=== PATIENT | female | born 1940 | race African-American/Black ===

== ENCOUNTER 2017-06-17 14:58 | Inpatient (IN) | payer MEDICARE, MEDICAID ==
[~2017-06-17] VITALS: Ht 162.6 cm; Wt 83.9 kg
[~2017-06-17 14:58] MED LIST: AMOXICILLIN500 MG ORAL; METFORMIN HCL500 M1 ORAL
[2017-06-17] MEDS ORDERED: SIMVASTATIN40 MG ORAL (15:08)
[2017-06-17] MEDS ORDERED: CLONIDINE HCL0.1 MG PO (15:08)
--- NOTE | 2017-06-17 15:09 | Emergency Room Report ---
History of Present Illness General Chief Complaint: Lower Extremity Injury Source: EMS Present Illness HPI 76 yo female patient presents to ER BIB ambulance complaining of ankle pain. Patient reports accident occurred 45 minutes ago. Patient reports [facility] and twisted ankle "back". Reports unable to ambulate. Reports swelling of right ankle. Reports prior to accident able to ambulate independently without cane or crutches. Reports given Morphine in ambulance, reports improvement of pain symptoms. Denies hitting head, dizziness, LOC. Denies fever, chest pain, SOB. Allergies: Coded Allergies: ASPIRIN (Verified Allergy, Unknown, Shortness of Breath, 09/15/14) Uncoded Allergies: APIRIN (Allergy, Unknown, 06/17/17) Patient History Past Medical History: see triage record Reviewed Nursing Documentation: PMH: Agreed, PSxH: Agreed Nursing Documentation-PMH Past Medical History: No History, Except For Hx Hypertension: Yes Hx Asthma: Yes Hx Diabetes: Yes Hx Cerebrovascular Accident: No Review of Systems All Other Systems: negative except mentioned in HPI Physical Exam Vital Signs Date Time Temp Pulse Resp B/P (MAP) Pulse Ox O2 Delivery O2 Flow Rate FiO2 06/17/17 14:50 98.5 51 16 168/65 98 Room Air 98.4 Sp02 EP Interpretation: reviewed, normal General Appearance: well appearing, no apparent distress, alert, GCS 15, non- toxic Head: normocephalic, atraumatic Eyes: bilateral eye normal inspection, bilateral eye PERRL ENT: hearing grossly normal, normal pharynx, no angioedema, normal voice, uvula midline, moist mucus membranes Neck: full range of motion Respiratory: lungs clear, normal breath sounds, no rhonchi, no respiratory distress, no accessory muscle use, no wheezing, speaking full sentences Cardiovascular #1: regular rate, rhythm, no edema Musculoskeletal: back normal, digits/nails normal, no calf tenderness, decreased range of motion, swelling, other - NVI, negative Syndesmotic squeeze test, patient able to wiggle toes, tender Neurologic: alert, oriented x3, responsive, motor strength/tone normal, sensory intact Psychiatric: mood/affect normal Skin: no rash Medical Decision Making PA Attestation Dr. Miles is my supervising Physician whom patient management has been discussed with. Diagnostic Impression: Primary Impression: Trimalleolar fracture ER Course Pt. presents to the ED c/o ankle pain. Ddx considered but are not limited to fracture, sprain, strain, contusion, dislocation. Vital signs: are WNL, pt. is afebrile Ordered X-ray and pain medication. ER COURSE An X-ray of the right ankle was ordered, results show trimalleolar fracture with subluxation, per the official reading. Consult with Dr. Miles. See Dr. Miles note. Attempted reduction in ER without sedation. Repeat x-ray taken post-reduction. Ankle placed in short leg and stirrup splint. Labs for admission ordered by Dr. Miles. Morphine ordered for patient for pain. Consult with Dr. Yañez. Patient will be admitted to Dr. Manriquez. Ordered labs for admission. Other X-Ray Diagnostic Results Other X-Ray Diagnostic Results #1: X-Ray ordered: right ankle # of Views/Limited Vs Complete: 3 View Indication: Pain EP Interpretation: Yes PA Xray: Interpretation reviewed, by supervising MD, and agrees with findings. Interpretation: other - trimallolar fracture and subluxation Impression: Other PA Scribe Text Paul Bowling PA-C Other X-Ray Diagnostic Results #2: X-Ray ordered: right ankle # of Views/Limited Vs Complete: 3 View Indication: Other - post-reduction EP Interpretation: Yes PA Xray: Interpretation reviewed, by supervising MD, and agrees with findings. Interpretation: other Impression: Other PA Scribe Text Paul Bowling PA-C Last Vital Signs Date Time Temp Pulse Resp B/P (MAP) Pulse Ox O2 Delivery O2 Flow Rate FiO2 06/17/17 14:50 98.5 51 16 168/65 98 Room Air 98.4 Disposition: ADMITTED INPATIENT Patient Instructions: Ankle Fracture, [id number] Ford Bowling Jun 17, 2017 15:09
[2017-06-17] MEDS ORDERED: OXYCODONE HCL20 M1 ORAL (15:11)
[2017-06-17] MEDS ORDERED: DIAZEPAM10 MG ORAL (15:11)
[2017-06-17] MEDS ORDERED: TENORMIN100 MG ORAL (15:11)
[2017-06-17] MEDS ORDERED: IRON18 M1 PO (15:17)
[2017-06-17] MEDS ORDERED: HYDRALAZIN20 MG/1 ML IJ (15:17)
[2017-06-17] MEDS ORDERED: OMEPRAZOLE20 M3 ORAL (15:17)
[2017-06-17] MEDS ORDERED: LISINOPRIL40 MG ORAL (15:17)
[2017-06-17] MEDS ORDERED: AMLODIPINE BESY10 MG ORAL (15:17)
[2017-06-17] MEDS ORDERED: NORCO 5-325 TA1 EACH ORAL (16:32)
[2017-06-17] MEDS ORDERED: TYLENOL EXTRA500 MG ORAL (16:32)
--- NOTE | 2017-06-17 16:40 | Diagnostic Imaging Report ---
Indication: Reason For Exam: PAIN Technique: 2 views of the right ankle Comparison: none Findings: There is a spiral fracture of the distal fibula. There is lateral and posterior subluxation of the tibiotalar joint. There is a fracture of the posterior malleolus. There are linear opacities between the talus and the medial malleolus which could represent small avulsion fracture fragments. Impression: Positive for complex trimalleolar ankle fracture/subluxation, as described
--- NOTE | 2017-06-17 17:17 | Emergency Room Report ---
History of Present Illness General Chief Complaint: Lower Extremity Injury Source: EMS Present Illness Allergies: Coded Allergies: ASPIRIN (Verified Allergy, Unknown, Shortness of Breath, 09/15/14) Uncoded Allergies: APIRIN (Allergy, Unknown, 06/17/17) Nursing Documentation-[facility] Past Medical History: No History, Except For Hx Hypertension: Yes Hx Asthma: Yes Hx Diabetes: Yes Hx Cerebrovascular Accident: No Physical Exam Vital Signs Date Time Temp Pulse Resp B/P (MAP) Pulse Ox O2 Delivery O2 Flow Rate FiO2 06/17/17 14:50 98.5 51 16 168/65 98 Room Air 98.4 Procedures Splinting Splinting : Consent: Verbal Hand-Made Type: plaster Splint: Posterior and stirrup Pre-Proc Neuro Vasc Exam: normal Post-Proc Neuro Vasc Exam: normal Patient Tolerated: Well Complications: None Joint Reduction Joint Reduction : Consent: Verbal Joint Reduction Site: other - Right ankle Procedural Sedation: No Reduction Attempts: One Pre-Procedure NV Exam: Yes Post-Procedure NV Exam: Yes Post Joint Reduction Film: joint reduced Patient Tolerated: Well Complications: None Progress Attempted reduction of subluxation Reduction done without sedation Mild improvement in subluxation Stirrup and posterior splint applied Medical Decision Making Diagnostic Impression: Primary Impression: Trimalleolar fracture Qualified Codes: S82.851A - Displaced trimalleolar fracture of right lower leg , initial encounter for closed fracture ER Course Patient with complex trimall fx see PA note for HPI, PE Was asked by PA to see patient and review Xray She has subluxation of the ankle Attempted closed reduction without sedation - see procedure note Pre-op labs in progress History of DM, HTN Consulted Dr Ellis - requested admission Endorsed to Dr Dhillon/surg bed Last Vital Signs Date Time Temp Pulse Resp B/P (MAP) Pulse Ox O2 Delivery O2 Flow Rate FiO2 06/17/17 14:50 98.5 51 16 168/65 98 Room Air 98.4 Status: improved Disposition: ADMITTED INPATIENT Scripts Acetaminophen* (TYLENOL EXTRA STRENGTH*) 500 Mg Tablet 500 MG ORAL Q8H Y for Prn Headache/Temp > 101, #30 TAB 0 Refills Prov: Ford Bowling P.A. 06/17/17 Hydrocodone Bit/Acetaminophen 5-325* (NORCO 5-325*) 1 Each Tablet 1 TAB ORAL Q6H Y for For Pain, #10 TAB 0 Refills Prov: Ford Bowling Parag 06/17/17 Referrals: NOT CHOSEN IPA/MD,REFERRING (PCP) Patient Instructions: Ankle Fracture, [id number] Additional Instructions: Patient instructed to follow up with primary care provider at scheduled appointment tomorrow and discuss further referral to orthopedics. Patient instructed on RICE method: rest, ice, compression, elevation. Patient instructed to NWB. Take medications as directed. Take Tylenol following completion of [place] for pain. Do not take together. Patient questions asked and answered. ER precautions given, patient instructed to return to ER immediately for any new or worsening of symptoms. WALESKA BARCLAY M.D. Jun 17, 2017 17:17
[2017-06-17 17:24] VITALS: BP 143/55
[2017-06-17] MEDS ORDERED: Morphine Sulfate 2mg/ml Inj IVP ONE (17:45)
[2017-06-17] MEDS ORDERED: Morphine Sulfate 2mg/ml Inj IVP PRN (18:15)
[2017-06-17] MEDS ORDERED: Acetaminophen 650 MG SUPP RECTAL PRN ×2 (18:15)
[2017-06-17] MEDS ORDERED: Milk of Magnesia 30ml Ud ORAL PRN (18:15)
[2017-06-17] MEDS ORDERED: Zolpidem 5mg tab ORAL PRN (18:15)
[2017-06-17] MEDS ORDERED: Morphine Sulfate 4mg/ml Inj IVP PRN (18:15)
[2017-06-17] MEDS ORDERED: Mylanta II UD 30ml ORAL PRN (18:15)
[2017-06-17 18:32] LABS: BASOPHILS % (AUTO) 0.5 % (0.0-2.0); HEMATOCRIT 32.4 % (37.0-47.0); HEMOGLOBIN 10.6 G/DL (12.0-16.0); LYMPHOCYTES % (AUTO) 13.6 % (20.0-45.0); MEAN CORPUSCULAR VOLUME 88 FL (80-99); MONOCYTES % (AUTO) 4.5 % (1.0-10.0); NEUTROPHILS % (AUTO) 80.5 % (45.0-75.0); PLATELET COUNT 272 K/UL (150-450); RED BLOOD COUNT 3.69 M/UL (4.20-5.40); RED CELL DISTRIBUTION WIDTH 11.8 % (11.6-14.8); WHITE BLOOD COUNT 8.9 K/UL (4.8-10.8)
[2017-06-17 18:38] LABS: ANION GAP 7 mmol/L (5-15); BLOOD UREA NITROGEN 17 mg/dL (7-18); CALCIUM 8.3 MG/DL (8.5-10.1); CARBON DIOXIDE 30 MMOL/L (21-32); CHLORIDE 107 MMOL/L (98-107); CREATININE 1.1 MG/DL (0.55-1.30); POTASSIUM 3.9 MMOL/L (3.5-5.1); SODIUM 144 MMOL/L (136-145)
[2017-06-17 18:43] LABS: ALANINE AMINOTRANSFERASE 14 U/L (12-78); ALBUMIN 3.2 G/DL (3.4-5.0); ALBUMIN/GLOBULIN RATIO 0.8 (1.0-2.7); ALKALINE PHOSPHATASE 61 U/L (46-116); ASPARTATE AMINO TRANSFERASE 12 U/L (15-37); BILIRUBIN,TOTAL 0.2 MG/DL (0.2-1.0)
[2017-06-17] MEDS ORDERED: IRON159 MG PO (18:52)
[2017-06-17] MEDS ORDERED: OXYCODONE HCL15 M1 ORAL (18:55)
[2017-06-17] MEDS ORDERED: PHENERGAN6.25 MG/5 PO (18:58)
[2017-06-17] MEDS ORDERED: OXYCODONE HCL30 MG PO (18:58)
[2017-06-17] MEDS ORDERED: CLONIDINE 0.2M0.2 MG PO (18:58)
[2017-06-17] MEDS ORDERED: APRESOLINE100 MG PO (19:02)
[2017-06-17] MEDS ORDERED: OMEPRAZOLE20 M2 PO (19:02)
[2017-06-17] MEDS ORDERED: PROAIR HFA8.5 GM INH (19:03)
[2017-06-17 19:33] VITALS: BP 108/41
--- NOTE | 2017-06-17 19:44 | History and Physical ---
History of Present Illness General Date patient seen: Jun 17, 2017 Time patient seen: 18:30 Reason for Hospitalization: Lower Extremity Injury Present Illness HPI 76y/o female with pmh of DM2, HTN, HLD, GERD who presents with R ankle pain s/p fall. Pt states she slipped on the wet floor [facility] at [facility] and fell, twisting her R ankle. She has been unable to ambulate since. Notes R ankle swelling and severe pain. Denies head trauma, LOC, f/c, n/v, d/c, chest pain, SOB, abd pain. At baseline pt states she is very functional. Able to ambulate several blocks and climb at least a flight of stairs. In ED, pt found to have R trimalleolar ankle fracture w/ subluxation. She was given morphine w/ improvement in pain. Closed reduction attempted in ER. Allergies: Coded Allergies: ASPIRIN (Verified Allergy, Unknown, Shortness of Breath, 09/15/14) Uncoded Allergies: APIRIN (Allergy, Unknown, 06/17/17) Medication History Scheduled Amlodipine Besylate* (Amlodipine Besylate*), 10 MG ORAL DAILY, (Reported) Atenolol (Tenormin), 100 MG ORAL DAILY, (Reported) Clonidine HCl (Clonidine HCl), 0.2 MG PO BID, (Reported) Clonidine Hcl (Clonidine Hcl), 0.1 MG PO BID, (Reported) Hydralazine HCl (Hydralazine HCl), 100 MG PO BID, (Reported) Lisinopril* (Lisinopril*), 40 MG ORAL DAILY, (Reported) Metformin Hcl* (Metformin Hcl*), 500 MG ORAL TWICE A DAY, (Reported) Omeprazole (Omeprazole), 20 MG PO ACBREAKFAST, (Reported) Oxycodone Hcl (Oxycodone Hcl), 30 MG PO Q8HR, (Reported) Promethazine/Dextromethorphan (Promethazine-Dm Syrup), 1 TSP PO Q6HR, (Reported) Simvastatin (Zocor), 40 MG ORAL BEDTIME, (Reported) Scheduled PRN Albuterol Sulfate* (Proair Hfa*), 2 PUFFS INH Q6H PRN for Bronchospasm, ( Reported) Miscellaneous Medications Diazepam* (Diazepam*), 10 MG ORAL, (Reported) Ferrous Sulfate, Dried (Iron), 125 MG PO, (Reported) Discontinued Medications Acetaminophen* (Tylenol Extra Strength*), 500 MG ORAL Q8H PRN for Prn Headache/ Temp > 101 Discontinued Reason: Pt stopped taking med Amoxicillin* (Amoxil*), 500 MG ORAL THREE TIMES A DAY Discontinued Reason: Pt stopped taking med Hydralazine Hcl (Hydralazine Hcl), 20 MG IJ, (Reported) Discontinued Reason: Pt stopped taking med Hydrocodone Bit/Acetaminophen 5-325* ([place] 5-325*), 1 TAB ORAL Q6H PRN for For Pain Discontinued Reason: Pt stopped taking med Iron (Iron), 18 MG PO, (Reported) Discontinued Reason: Prescription changed Oxycodone Hcl (Oxycodone Hcl), 20 MG ORAL BID PRN for For Pain, (Reported) Discontinued Reason: Prescription changed Patient History History Provided By: Patient, Family Member, Medical Record Healthcare decision maker Resuscitation status Advanced Directive on File Past Medical/Surgical History Past Medical/Surgical History: (1) DM2 (diabetes mellitus, type 2) (2) HTN (hypertension) (3) GERD (gastroesophageal reflux disease) (4) HLD (hyperlipidemia) Family History Family History: Patient reports no known family medical history. Social History Social History: (1) Lives alone with help available Review of Systems Constitutional: Reports: no symptoms Eye: Reports: no symptoms ENT: Reports: no symptoms Respiratory: Reports: no symptoms Cardiovascular: Reports: no symptoms Gastrointestinal: Reports: no symptoms Musculoskeletal: Reports: joint pain, joint swelling, muscle pain Skin: Reports: no symptoms Psychiatric: Reports: no symptoms Neurological: Reports: no symptoms Endocrine: Reports: no symptoms Hematologic/Lymphatic: Reports: no symptoms All Other Systems: negative except mentioned in HPI Physical Exam Physical Exam Narrative General: alert, cooperative, no distress, appears stated age Head: normocephalic, without obvious abnormality, atraumatic Eyes: conjunctivae/corneas clear. PERRL, EOM's intact Throat: lips, mucosa, and tongue normal. MMM Neck: supple, symmetrical, trachea midline, and no JVD Lungs: clear to auscultation bilaterally Heart: regular rate and rhythm, S1, S2 normal, no murmur, click, rub or gallop Abdomen: soft, non-tender, non-distended, bowel sounds normal; no masses or organomegaly Extremities: extremities normal, atraumatic, no cyanosis or edema Pulses: 2+ and symmetric Skin: RLE in cast c/d/i Neurologic: grossly normal, no focal deficits Last 24 Hour Vital Signs Date Time Temp Pulse Resp B/P (MAP) Pulse Ox O2 Delivery O2 Flow Rate FiO2 06/17/17 19:33 97.8 60 14 108/41 95 Room Air 97.8 06/17/17 17:24 98.3 71 17 143/55 94 Room Air 98.3 06/17/17 14:50 98.5 51 16 168/65 98 Room Air 98.4 Laboratory Tests Test 06/17/17 18:06 White Blood Count 8.9 K/UL (4.8-10.8) Red Blood Count 3.69 M/UL (4.20-5.40) L Hemoglobin 10.6 G/DL (12.0-16.0) L Hematocrit 32.4 % (37.0-47.0) L Mean Corpuscular Volume 88 FL (80-99) Mean Corpuscular Hemoglobin 28.7 PG (27.0-31.0) Mean Corpuscular Hemoglobin Concent 32.7 G/DL (32.0-36.0) Red Cell Distribution Width 11.8 % (11.6-14.8) Platelet Count 272 K/UL (150-450) Mean Platelet Volume 7.3 FL (6.5-10.1) Neutrophils (%) (Auto) 80.5 % (45.0-75.0) H Lymphocytes (%) (Auto) 13.6 % (20.0-45.0) L Monocytes (%) (Auto) 4.5 % (1.0-10.0) Eosinophils (%) (Auto) 1.0 % (0.0-3.0) Basophils (%) (Auto) 0.5 % (0.0-2.0) Prothrombin Time 10.3 SEC (9.30-11.50) Prothromb Time International Ratio 1.0 (0.9-1.1) Sodium Level 144 MMOL/L (136-145) Potassium Level 3.9 MMOL/L (3.5-5.1) Chloride Level 107 MMOL/L (98-107) Carbon Dioxide Level 30 MMOL/L (21-32) Anion Gap 7 mmol/L (5-15) Blood Urea Nitrogen 17 mg/dL (7-18) Creatinine 1.1 MG/DL (0.55-1.30) Estimat Glomerular Filtration Rate mL/min (>60) Glucose Level 190 MG/DL (74-106) H Calcium Level 8.3 MG/DL (8.5-10.1) L Total Bilirubin 0.2 MG/DL (0.2-1.0) Aspartate Amino Transf (AST/SGOT) 12 U/L (15-37) L Alanine Aminotransferase (ALT/SGPT) 14 U/L (12-78) Alkaline Phosphatase 61 U/L (46-116) Total Protein 7.0 G/DL (6.4-8.2) Albumin 3.2 G/DL (3.4-5.0) L Globulin 3.8 g/dL Albumin/Globulin Ratio 0.8 (1.0-2.7) L Height (Feet): 5 Height (Inches): 4.00 Weight (Pounds): 179 Medications Current Medications Medications (Trade) Dose Ordered Sig/Allison Route PRN Reason Start Time Stop Time Status Last Admin Dose Admin Acetaminophen (Tylenol) 650 mg Q4H PRN ORAL Mild Pain (Pain Scale 1-3) 06/17/17 18:15 07/17/17 18:14 Acetaminophen (Tylenol) 650 mg Q4H PRN ORAL fever 06/17/17 18:15 07/17/17 18:14 Acetaminophen (Tylenol) 650 mg Q4H PRN RECTAL Mild Pain (Pain Scale 1-3) 06/17/17 18:15 07/17/17 18:14 Acetaminophen (Tylenol) 650 mg Q4H PRN RECTAL fever 06/17/17 18:15 07/17/17 18:14 Al Hydroxide/Mg Hydroxide (Mylanta II) 30 ml Q6H PRN ORAL dyspepsia 06/17/17 18:15 07/17/17 18:14 Amlodipine Besylate (Norvasc) 10 mg DAILY ORAL 06/18/17 09:00 07/18/17 08:59 Atenolol (Tenormin) 100 mg DAILY ORAL 06/18/17 09:00 07/18/17 08:59 Bisacodyl (Dulcolax) 10 mg HSPRN PRN RECTAL Constipation 06/17/17 18:15 07/17/17 18:14 Dextrose (Dextrose 50%) STAT PRN IV Hypoglycemia 06/17/17 18:15 07/17/17 18:14 Diphenhydramine HCl (Benadryl) 25 mg Q6H PRN ORAL Itching/Pruritis 06/17/17 18:15 07/17/17 18:14 Docusate Sodium (Colace) 100 mg EVERY 12 HOURS ORAL 06/17/17 21:00 07/17/17 20:59 Insulin Aspart (NovoLOG) BEFORE MEALS AND HS SUBQ 06/17/17 21:00 07/17/17 20:59 UNV Magnesium Hydroxide (Mom) 30 ml HSPRN PRN ORAL Constipation 06/17/17 18:15 07/17/17 18:14 Morphine Sulfate (Morphine Sulfate) 2 mg Q3H PRN IVP Moderate Pain (Pain Scale 4-6) 06/17/17 18:15 06/24/17 18:14 Morphine Sulfate (Morphine Sulfate) 4 mg Q3H PRN IVP Severe Pain (Pain Scale 7-10) 06/17/17 18:15 06/24/17 18:14 Ondansetron HCl (Zofran) 4 mg Q6H PRN IVP Nausea & Vomiting 06/17/17 18:15 07/17/17 18:14 Sodium Chloride 1,000 ml @ 75 mls/hr [id number] IV 06/18/17 00:00 07/18/17 00:00 Zolpidem Tartrate (Ambien) 5 mg HSPRN PRN ORAL Insomnia 06/17/17 18:15 06/24/17 18:14 Assessment/Plan Problem List: (1) Displaced trimalleolar fracture of right ankle ICD Codes: S82.851A - Displaced trimalleolar fracture of right lower leg, initial encounter for closed fracture SNOMED: 788908857, 928880857 (2) HTN (hypertension) ICD Codes: I10 - Essential (primary) hypertension SNOMED: 94540805 (3) GERD (gastroesophageal reflux disease) ICD Codes: K21.9 - Gastro-esophageal reflux disease without esophagitis SNOMED: 651744433 (4) HLD (hyperlipidemia) ICD Codes: E78.5 - Hyperlipidemia, unspecified SNOMED: 23945637 (5) DM2 (diabetes mellitus, type 2) ICD Codes: E11.9 - Type 2 diabetes mellitus without complications SNOMED: 96976583 Status: stable Assessment/Plan Admit inpt Ortho surg consulted--likely plan for OR tomorrow, NPO at [place] NWB RLE for now Preop EKG and CXR ordered Cont home meds but hold MTF, RICARDO-I for now LEYDI Pain control, bowel regimen Supportive care DVT ppx: SCDs for now FULL CODE D/w pt/family, RN, ER physician regarding mgmt and dispo Fatmata Viera M.D. Jun 17, 2017 19:44
[2017-06-17] MEDS ORDERED: Morphine Sulfate 4mg/ml Inj IVP ONE (20:30)
[2017-06-17] MEDS: Docusate 100mg cap ORAL SCH (20:59)
[2017-06-17] MEDS: NovoLOG Insulin Flexpen SUBQ SCH (21:00)
[2017-06-17 21:39] VITALS: BP 126/63
[2017-06-18] VITALS (12 sets, daily range): BP systolic 140–162; BP diastolic 51–75
[2017-06-18] MEDS: NovoLOG Insulin Flexpen SUBQ SCH ×2 (06:29→12:02)
[2017-06-18 07:24] LABS: BASOPHILS % (AUTO) 0.4 % (0.0-2.0); EOSINOPHILS % (AUTO) 1.2 % (0.0-3.0); HEMATOCRIT 30.4 % (37.0-47.0); HEMOGLOBIN 10.1 G/DL (12.0-16.0); LYMPHOCYTES % (AUTO) 20.1 % (20.0-45.0); MEAN CORPUSCULAR VOLUME 88 FL (80-99); MONOCYTES % (AUTO) 7.1 % (1.0-10.0); NEUTROPHILS % (AUTO) 71.2 % (45.0-75.0); PLATELET COUNT 256 K/UL (150-450); RED BLOOD COUNT 3.46 M/UL (4.20-5.40); WHITE BLOOD COUNT 8.5 K/UL (4.8-10.8)
[2017-06-18 07:41] LABS: ALANINE AMINOTRANSFERASE 13 U/L (12-78); ALBUMIN 3.2 G/DL (3.4-5.0); ALBUMIN/GLOBULIN RATIO 0.9 (1.0-2.7); ALKALINE PHOSPHATASE 60 U/L (46-116); ANION GAP 8 mmol/L (5-15); ASPARTATE AMINO TRANSFERASE 13 U/L (15-37); BILIRUBIN,TOTAL 0.2 MG/DL (0.2-1.0); BLOOD UREA NITROGEN 18 mg/dL (7-18); CALCIUM 8.5 MG/DL (8.5-10.1); CARBON DIOXIDE 29 MMOL/L (21-32); CHLORIDE 107 MMOL/L (98-107); CREATININE 0.9 MG/DL (0.55-1.30); POTASSIUM 3.7 MMOL/L (3.5-5.1); SODIUM 144 MMOL/L (136-145)
[2017-06-18] MEDS ORDERED: Midazolam 2mg/2ml Inj ONE (08:00)
[2017-06-18] MEDS ORDERED: Sterile Water Irrig 1000ml IRRIG ONE (08:00)
[2017-06-18] MEDS ORDERED: Propofol 200mg/20ml IV ONE (08:00)
[2017-06-18] MEDS ORDERED: ePHEDrine 50mg/ml Inj ONE (08:00)
[2017-06-18] MEDS ORDERED: NS Irrig 1000ml ONE (08:00)
[2017-06-18] MEDS ORDERED: Lidocaine 1% MPF 10mg/ml 5ml ONE (08:00)
[2017-06-18] MEDS ORDERED: LR 1000ml ONE (08:00)
[2017-06-18] MEDS ORDERED: fentaNYL 100 mcg/2 mL IV ONE (08:00)
--- NOTE | 2017-06-18 08:41 | Diagnostic Imaging Report ---
Indication: Pain, status post reduction of fracture or subluxation Technique: 2 views of the ankle Comparison: 2 hours earlier Findings: Interim closed reduction of previously demonstrated right ankle trimalleolar fracture/subluxation. Improved alignment, although there is still some posterior and very slight lateral subluxation of the talus relative to the tibia. There is still approximately 1 cm of posterior displacement of the distal fibular fracture fragment. Impression: Improved alignment, as described, of previously demonstrated right ankle fracture/subluxation, post closed reduction, with some persistent subluxation
--- NOTE | 2017-06-18 08:57 | Diagnostic Imaging Report ---
Indication: Chest pain Technique: One view of the chest Comparison: 12/24/2005 Findings: The heart is mildly enlarged. The lungs spaces are clear. The aorta is tortuous and calcified. No significant interim change Impression: Cardiomegaly. No acute process
[2017-06-18] MEDS: Docusate 100mg cap ORAL SCH ×2 (09:13→20:29)
[2017-06-18] MEDS ORDERED: ceFAZolin sod 2 GM in D5W 110 ML IV ONE (10:00)
--- NOTE | 2017-06-18 14:16 | Pre-Procedure Note/Attestation ---
Pre-Procedure Note/Attestation Complete Prior to Procedure Planned Procedure: right Procedure Narrative: Ankle ORIf Indications for Procedure Pre-Operative Diagnosis: Right Ankle fracture Attestation I attest that I discussed the nature of the procedure; its benefits; risks and complications; and alternatives (and the risks and benefits of such alternatives ), prior to the procedure, with the patient (or the patient's legal sales solutions representative). I attest that, if there was a reasonable possibility of needing a blood transfusion, the patient (or the patient's legal sales solutions representative) was given the [facility] standardized written summary, pursuant to the [place] Blood Safety Act ([place] Health and Safety Code # 1645, as amended). I attest that I re-evaluated the patient just prior to the surgery and that there has been no change in the patient's H&P, except as documented below: JM BATES Jun 18, 2017 14:15
[2017-06-18] MEDS ORDERED: Ropivacaine 5mg/ml Vial 30ml INJ ONE (14:18)
[2017-06-18] MEDS ORDERED: Bupivacaine 0.5% Inj 30 ml vial INJ ONE (14:18)
[2017-06-18] MEDS ORDERED: Bacitracin 50000 Units Vial ONE (14:18)
[2017-06-18] MEDS ORDERED: NeoSporin Gu Irrig 1ml Amp IRRIG ONE (14:18)
[2017-06-18] MEDS ORDERED: EPINEPHrine 1mg/1ml Amp ONE (14:18)
[2017-06-18] MEDS ORDERED: HYDROmorphone 1mg/ml Carpuject SUBQ PRN (14:30)
[2017-06-18] MEDS ORDERED: Norco 5mg/325mg tab ORAL PRN (14:30)
--- NOTE | 2017-06-18 14:31 | Consultation ---
DATE OF CONSULTATION: 06/18/2017 ORTHOPEDIC CONSULTATION CONSULTING PHYSICIAN: Rayshawn Yañez M.D. REQUESTING PHYSICIAN: Agustina Manriquez M.D. as well as the ER physician. REASON FOR CONSULTATION: Right ankle fracture. BRIEF HISTORY: The patient is a 76-year-old female, who sustained a mechanical fall at [facility] when she twisted her right ankle. This occurred yesterday. She was admitted to [facility]. She is unable to ambulate. X-ray showed a right bimalleolar fracture dislocation. She was admitted for definitive care. PAST MEDICAL HISTORY: Significant for history of hypertension. PAST SURGICAL HISTORY: Not available. MEDICATIONS: Please see chart. ALLERGIES: She is allergic to aspirin, which may cause some shortness of breath. SOCIAL HISTORY: There is no documentation of any alcohol abuse. There is no significant smoking history. REVIEW OF SYSTEMS: Noncontributory PHYSICAL EXAMINATION: Examination revealed she is a pleasant lady. She is in a splint. She is able to wiggle her toes. She does have some pain about the right ankle. X-RAYS: X-ray of the right ankle was reviewed. There is evidence of lateral malleolar fracture with posterior malleolar fracture, possible medial malleolar fracture. IMPRESSION: Right ankle, possible trimalleolar fracture versus bimalleolar fracture. PLAN: At this time, I had discussion with the patient. I explained to her my findings. We will go ahead and proceed with right ankle open reduction and internal fixation. Risks, benefits, and complications of the surgery were discussed with her and she understands the risks of surgery and complications associated with it. All questions were answered. We will go ahead and get her proceed with surgery. Rayshawn Yañez M.D. DR: AURA JOB#: [id number] CC:
--- NOTE | 2017-06-18 15:44 | Brief Operative Note ---
Immediate Post Operative Note Operative Note Pre-op Diagnosis: Right Ankle fracture Procedure: right ankle ORIf Post-op Diagnosis: same as pre-op Surgeon: jazz Anesthesiologist: Miracle KING Anesthesia: general Specimen: none Complications: none Condition: stable Fluids: 500 cc Estimated Blood Loss: minimal Drains: none Tourniquet time: 55 Implant(s) used?: Yes - JM Cho Jun 18, 2017 15:43
[2017-06-18] MEDS ORDERED: Hydromorphone 0.5mg/0.5ml inj IVP PRN (16:00)
[2017-06-18] MEDS ORDERED: fentaNYL 100 mcg/2 mL IV PRN (16:00)
--- NOTE | 2017-06-18 16:01 | Anethesia Preoperative Eval ---
Anesthesia Pre-op PMH/ROS General Date of Evaluation: Jun 18, 2017 Time of Evaluation: 14:00 Anesthesiologist: maria teresa ASA Score: ASA 2 Mallampati Score Class I : Soft palate, uvula, fauces, pillars visible Class II: Soft palate, uvula, fauces visible Class III: Soft palate, base of uvula visible Class IV: Only hard plate visible Mallampati Classification: Class II Surgeon: jazz Diagnosis: ankle fx Surgical Procedure: ORIF Ankle Anesthesia History: none Family History: no anesthesia problems Allergies: Coded Allergies: ASPIRIN (Verified Allergy, Unknown, Shortness of Breath, 09/15/14) Medications: see eMAR Past Medical History Cardiovascular: Reports: HTN; Denies: CAD, VA, valve dz, arrhythmia, other Pulmonary: Reports: asthma; Denies: COPD, PIERRE, other Gastrointestinal/Genitourinary: Reports: GERD; Denies: CRI, ESRD, other Neurologic/Psychiatric: Denies: dementia, CVA, depression/anxiety, TIA, other Endocrine: Reports: DM HEENT: Denies: cataract (L), cataract (R), glaucoma, WAMP[place]OAG (L), WAMP[place]OAG (R), other Hematology/Immune: Denies: anemia, DVT, bleeding disorder, other Musculoskeletal/Integumentary: Denies: OA, RA, DJD, DDD, edema, other Other: obesity PMH Narrative: 1) DM2 (diabetes mellitus, type 2) (2) HTN (hypertension) (3) GERD (gastroesophageal reflux disease) (4) HLD (hyperlipidemia) Anesthesia Pre-op Phys. Exam Physician Exam Last Vital Signs Date Time Temp Pulse Resp B/P (MAP) Pulse Ox O2 Delivery O2 Flow Rate FiO2 06/18/17 12:00 99.5 67 19 152/75 94 99.5 06/18/17 04:00 Room Air Constitutional: NAD Neurologic: CN 2-12 intact Cardiovascular: RRR Respiratory: CTA Gastrointestinal: S/NT/ND Airway Exam Mallampati Classification 3 Mallampati Score: Class II MO: full ROM: full Dentures: upper, lower Anesthesia Pre-op A/P Labs Hematology Test 06/17/17 18:06 06/18/17 04:50 White Blood Count 8.9 K/UL (4.8-10.8) 8.5 K/UL (4.8-10.8) Red Blood Count 3.69 M/UL (4.20-5.40) L 3.46 M/UL (4.20-5.40) L Hemoglobin 10.6 G/DL (12.0-16.0) L 10.1 G/DL (12.0-16.0) L Hematocrit 32.4 % (37.0-47.0) L 30.4 % (37.0-47.0) L Mean Corpuscular Volume 88 FL (80-99) 88 FL (80-99) Mean Corpuscular Hemoglobin 28.7 PG (27.0-31.0) 29.3 PG (27.0-31.0) Mean Corpuscular Hemoglobin Concent 32.7 G/DL (32.0-36.0) 33.4 G/DL (32.0-36.0) Red Cell Distribution Width 11.8 % (11.6-14.8) 12.0 % (11.6-14.8) Platelet Count 272 K/UL (150-450) 256 K/UL (150-450) Mean Platelet Volume 7.3 FL (6.5-10.1) 7.2 FL (6.5-10.1) Neutrophils (%) (Auto) 80.5 % (45.0-75.0) H 71.2 % (45.0-75.0) Lymphocytes (%) (Auto) 13.6 % (20.0-45.0) L 20.1 % (20.0-45.0) Monocytes (%) (Auto) 4.5 % (1.0-10.0) 7.1 % (1.0-10.0) Eosinophils (%) (Auto) 1.0 % (0.0-3.0) 1.2 % (0.0-3.0) Basophils (%) (Auto) 0.5 % (0.0-2.0) 0.4 % (0.0-2.0) Coagulation Test 06/17/17 18:06 Prothrombin Time 10.3 SEC (9.30-11.50) Prothromb Time International Ratio 1.0 (0.9-1.1) Chemistry Test 06/17/17 18:06 3/22/18 04:50 Sodium Level 144 MMOL/L (136-145) 144 MMOL/L (136-145) Potassium Level 3.9 MMOL/L (3.5-5.1) 3.7 MMOL/L (3.5-5.1) Chloride Level 107 MMOL/L (98-107) 107 MMOL/L (98-107) Carbon Dioxide Level 30 MMOL/L (21-32) 29 MMOL/L (21-32) Anion Gap 7 mmol/L (5-15) 8 mmol/L (5-15) Blood Urea Nitrogen 17 mg/dL (7-18) 18 mg/dL (7-18) Creatinine 1.1 MG/DL (0.55-1.30) 0.9 MG/DL (0.55-1.30) Estimat Glomerular Filtration Rate mL/min (>60) mL/min (>60) Glucose Level 190 MG/DL (74-106) H 118 MG/DL (74-106) H Calcium Level 8.3 MG/DL (8.5-10.1) L 8.5 MG/DL (8.5-10.1) Total Bilirubin 0.2 MG/DL (0.2-1.0) 0.2 MG/DL (0.2-1.0) Aspartate Amino Transf (AST/SGOT) 12 U/L (15-37) L 13 U/L (15-37) L Alanine Aminotransferase (ALT/SGPT) 14 U/L (12-78) 13 U/L (12-78) Alkaline Phosphatase 61 U/L (46-116) 60 U/L (46-116) Total Protein 7.0 G/DL (6.4-8.2) 6.9 G/DL (6.4-8.2) Albumin 3.2 G/DL (3.4-5.0) L 3.2 G/DL (3.4-5.0) L Globulin 3.8 g/dL 3.7 g/dL Albumin/Globulin Ratio 0.8 (1.0-2.7) L 0.9 (1.0-2.7) L Hemoglobin A1c 6.3 % (4.3-6.0) H Studies Pre-op Studies: EKG - sr Risk Assessment & Plan Assessment: denies sob, chest pain Plan: general Pre-Antibiotics Drug: ancef Given Within 1 Hr of Incision: Yes Time Given: 14:15 ALIZA CHAVEZ CRNA Jun 18, 2017 16:00
--- NOTE | 2017-06-18 16:49 | Diagnostic Imaging Report ---
Indication: Fracture, intraoperative Technique: Intraoperative imaging Comparison: 06/17/2017 Findings: Intraoperative images document surgical repair of previously demonstrated distal fibular fracture, reduction of previously demonstrated tibiotalar subluxation. Impression: Intraoperative imaging, as described
--- NOTE | 2017-06-18 17:27 | Immediate Post-Op Evaluation ---
Immediate Post-Op Evalulation Immediate Post-Op Evalulation Procedure: right ankle ORIF Date of Evaluation: Jun 18, 2017 Time of Evaluation: 15:55 IV Fluids: 800 Blood Pressure Systolic: 145 Blood Pressure Diastolic: 75 Pulse Rate: 62 Respiratory Rate: 14 O2 Sat by Pulse Oximetry: 100 Temperature (Fahrenheit): 98.0 Nausea: No Vomiting: No Complications none Patient Status: awake, reacts, patent Hydration Status: adequate Drug: ancef Given Within 1 Hr of Incision: Yes Time Given: 14:15 ALIZA CHAVEZ CRNA Jun 18, 2017 17:27
--- NOTE | 2017-06-18 17:28 | 48 Hour Post Anesthesia Eval ---
Post Anesthesia Evaluation Procedure: right ankle ORIF Date of Evaluation: Jun 18, 2017 Time of Evaluation: 17:28 Blood Pressure Systolic: 157 0: 74 Pulse Rate: 70 Respiratory Rate: 14 O2 Sat by Pulse Oximetry: 98 Airway: patent Nausea: No Vomiting: No Hydration Status: adequate Cardiopulmonary Status: stable Mental Status/LOC: patient returned to baseline Follow-up Care/Observations: na Post-Anesthesia Complications: none Follow-up care needed: N/A ALIZA CHAVEZ CRNA Jun 18, 2017 17:28
[2017-06-18] MEDS: Docusate Sod/Senna tab ORAL SCH (18:00)
[2017-06-18] MEDS ORDERED: Docusate 100mg cap ORAL SCH (18:00)
[2017-06-18] MEDS: metFORMIN 500mg tab ORAL SCH (18:00)
[2017-06-18] MEDS: Heparin 5000 units/ml inj SUBQ SCH (20:24)
--- NOTE | 2017-06-18 22:23 | Pulmonology Progress Note ---
Assessment/Plan Problems: (1) Displaced trimalleolar fracture of right ankle (2) DM2 (diabetes mellitus, type 2) (3) HTN (hypertension) (4) GERD (gastroesophageal reflux disease) Assessment/Plan tolerated surgery very well d/c planning to acute rehab symptomatic treatment Subjective ROS Limited/Unobtainable: No Constitutional: Reports: no symptoms Respiratory: Reports: no symptoms Allergies: Coded Allergies: ASPIRIN (Verified Allergy, Unknown, Shortness of Breath, 09/15/14) Objective Last 24 Hour Vital Signs Date Time Temp Pulse Resp B/P (MAP) Pulse Ox O2 Delivery O2 Flow Rate FiO2 06/18/17 20:00 97.8 76 18 146/51 93 97.8 06/18/17 18:56 97.7 62 20 150/64 99 97.7 06/18/17 17:28 70 14 98 06/18/17 17:27 208.4 62 14 100 06/18/17 16:46 98.5 06/18/17 16:30 98.5 64 21 157/74 99 Nasal Cannula 3.0 98.5 06/18/17 16:16 98.3 06/18/17 16:15 63 17 157/75 99 Nasal Cannula 3.0 06/18/17 16:00 61 15 153/61 98 Nasal Cannula 3.0 06/18/17 15:52 62 13 162/73 98 Nasal Cannula 3.0 06/18/17 15:47 70 20 144/61 97 Simple Mask 6.0 06/18/17 15:42 98.3 62 25 145/70 97 Simple Mask 6.0 98.3 06/18/17 12:00 99.5 67 19 152/75 94 99.5 06/18/17 09:44 97.9 06/18/17 09:14 97.9 06/18/17 09:13 68 145/67 06/18/17 09:13 68 145/67 06/18/17 08:00 97.9 68 17 145/67 96 97.9 06/18/17 04:00 98 Room Air 06/18/17 04:00 97.8 71 18 140/58 98 97.8 06/18/17 00:00 93 Room Air 06/18/17 00:00 99.1 69 19 144/63 93 99.1 06/17/17 22:25 97.8 67 14 126/63 95 Room Air 97.8 Intake and Output 06/17/17 06/18/17 19:00 07:00 Intake Total 0 ml Output Total 0 ml Balance 0 ml 0 ml Intake Oral 0 ml Output Urine Total 0 ml # Voids 1 General Appearance: WD/WN HEENT: normocephalic, atraumatic Respiratory/Chest: chest wall non-tender, lungs clear Cardiovascular: normal peripheral pulses, normal rate Abdomen: normal bowel sounds, no organomegaly Extremities: no clubbing Skin: no ulcers Neurologic/Psychiatric: motor analyst II-XII grossly normal, no motor/sensory deficits Laboratory Tests 06/18/17 04:50: White Blood Count 8.5, Red Blood Count 3.46L, Hemoglobin 10.1L, Hematocrit 30.4L , Mean Corpuscular Volume 88, Mean Corpuscular Hemoglobin 29.3, Mean Corpuscular Hemoglobin Concent 33.4, Red Cell Distribution Width 12.0, Platelet Count 256, Mean Platelet Volume 7.2, Neutrophils (%) (Auto) 71.2, Lymphocytes (% ) (Auto) 20.1, Monocytes (%) (Auto) 7.1, Eosinophils (%) (Auto) 1.2, Basophils ( %) (Auto) 0.4, Sodium Level 144, Potassium Level 3.7, Chloride Level 107, Carbon Dioxide Level 29, Anion Gap 8, Blood Urea Nitrogen 18, Creatinine 0.9, Estimat Glomerular Filtration Rate , Glucose Level 118H, Hemoglobin A1c 6.3H, Calcium Level 8.5, Total Bilirubin 0.2, Aspartate Amino Transf (AST/SGOT) 13L, Alanine Aminotransferase (ALT/SGPT) 13, Alkaline Phosphatase 60, Total Protein 6.9, Albumin 3.2L, Globulin 3.7, Albumin/Globulin Ratio 0.9L Current Medications Medications (Trade) Dose Ordered Sig/Allison Route PRN Reason Start Time Stop Time Status Last Admin Dose Admin Acetaminophen (Tylenol) 650 mg Q4H PRN ORAL Mild Pain (Pain Scale 1-3) 06/17/17 18:15 07/17/17 18:14 Acetaminophen (Tylenol) 650 mg Q4H PRN ORAL fever 06/17/17 18:15 07/17/17 18:14 Acetaminophen (Tylenol) 650 mg Q4H PRN RECTAL Mild Pain (Pain Scale 1-3) 06/17/17 18:15 07/17/17 18:14 Acetaminophen (Tylenol) 650 mg Q4H PRN RECTAL fever 06/17/17 18:15 07/17/17 18:14 Acetaminophen/ Hydrocodone Bitart ([place] 5/325) 1 tab Q4H PRN ORAL For Moderate Pain 06/18/17 14:30 06/25/17 14:29 Al Hydroxide/Mg Hydroxide (Mylanta II) 30 ml Q6H PRN ORAL dyspepsia 06/17/17 18:15 07/17/17 18:14 Amlodipine Besylate (Norvasc) 10 mg DAILY ORAL 06/18/17 09:00 07/18/17 08:59 06/18/17 09:13 Atenolol (Tenormin) 100 mg DAILY ORAL 06/18/17 09:00 07/18/17 08:59 06/18/17 09:13 Bisacodyl (Dulcolax) 10 mg HSPRN PRN RECTAL Constipation 06/17/17 18:15 07/17/17 18:14 Dextrose (Dextrose 50%) STAT PRN IV Hypoglycemia 06/17/17 18:15 07/17/17 18:14 Diphenhydramine HCl (Benadryl) 25 mg Q6H PRN ORAL Itching/Pruritis 06/17/17 18:15 07/17/17 18:14 Docusate Sodium (Colace) 100 mg EVERY 12 HOURS ORAL 06/17/17 21:00 07/17/17 20:59 06/18/17 20:29 Heparin Sodium (Porcine) (Heparin 5000 units/ml) 5,000 units EVERY 12 HOURS SUBQ 06/18/17 21:00 07/18/17 20:59 06/18/17 20:24 Hydromorphone HCl (Dilaudid) 1 mg Q3H PRN SUBQ Mod Pain (Scale 4-6) if unable 06/18/17 14:30 06/25/17 14:29 Magnesium Hydroxide (Mom) 30 ml HSPRN PRN ORAL Constipation 06/17/17 18:15 07/17/17 18:14 Metformin HCl (Glucophage) 500 mg BID ORAL 06/18/17 18:00 07/18/17 17:59 Morphine Sulfate (Morphine Sulfate) 4 mg Q3H PRN IVP Severe Pain (Pain Scale 7-10) 06/17/17 18:15 06/24/17 18:14 Ondansetron HCl (Zofran) 4 mg Q6H PRN IVP Nausea & Vomiting 06/17/17 18:15 07/17/17 18:14 Senna/Docusate Sodium (Ngoc-Colace) 1 tab TWICE A DAY ORAL 06/18/17 18:00 07/18/17 17:59 Sodium Chloride 1,000 ml @ 75 mls/hr [id number] IV 06/18/17 00:00 07/18/17 00:00 06/18/17 09:13 Temazepam (Restoril) 7.5 mg HSPRN PRN ORAL Insomnia 06/18/17 14:30 06/25/17 14:29 Agustina Manriquez MD Jun 18, 2017 22:23
--- NOTE | 2017-06-18 23:16 | Operative Note - Dictated ---
DATE OF OPERATION: 06/18/2017 PREOPERATIVE DIAGNOSIS: Right ankle bimalleolar fracture involving the lateral malleolus as well as posterior malleolus. POSTOPERATIVE DIAGNOSIS: Right ankle bimalleolar fracture involving the lateral malleolus as well as posterior malleolus. PROCEDURE: 1. Right ankle open reduction and internal fixation of lateral malleolus with a 7-hole 1/3 tubular plate with 3 distal and 3 proximal screws and a lag screw. 2. Closed reduction of posterior malleolus with dorsiflexion of the ankle. SURGEON: Rayshawn Yañez M.D. MULESER: None. ANESTHESIOLOGIST: CHRISTINE Rausch ANESTHESIA: General LMA anesthesia combined with local block. EBL: Less than 20 mL. TOURNIQUET TIME: 55 minutes. COMPLICATIONS: None. BRIEF HISTORY: The patient is a pleasant 76-year-old female, who sustained a mechanical fall and broke her ankle. She was admitted, and after full discussion of the risks and benefits of the surgery and complications associated with it including infection, bleeding, neurovascular complications, possibility of nonunion, possibility of malunion, possible other complications that may arise as well as DVT, PEs, and other complication, she opted for surgical treatment as described above. OPERATIVE PROCEDURE: The patient was brought to the operating table and was placed supine all pressure points well padded. General LMA anesthesia was induced and right leg was prepped and draped in usual sterile fashion. The right leg was exsanguinated. Tourniquet was inflated to 275 mmHg. The C-arm was brought in and fracture was identified. A standard lateral approach to the fibula was undertaken. The incision was taken through subcutaneous tissue. There were some cutaneous nerves that were identified and protected. The fibular fracture was identified. It was a long spiral fracture. The fibular fracture was reduced anatomically and a single lag screw was placed in. This held the reduction well. At this point, a 1/3 tubular 7-hole buttress plate was applied and 3 bicortical screws proximally and 2 bicortical screws distally and a single unicortical cancellous screw most distally were used to affix the fracture. This provided excellent stability of the fracture. The image intensifier was brought in and the hardware was in excellent position. The screws were extra-articular. The reduction was checked and appeared to be anatomical. The tibiotalar joint was well reduced and the mortise was well reduced. The syndesmosis was intact. The medial malleolus was intact. The posterior malleolus was viewed on the lateral view and with dorsiflexion, this reduced anatomically. Therefore, there was no need to put a posterior malleolar screws in. Therefore, at this point, all wounds were thoroughly irrigated and subcutaneous tissue was closed using 2-0 Vicryl suture. Skin was closed using 3-0 Monocryl suture. Sterile dressing was applied, and posterior splint and sugar-tong splint were applied, and the tourniquet was deflated. The patient was taken to recovery room in stable condition. All lap counts and instrument counts were correct. Rayshawn Yañez M.D. DR: LILLI JOB#: [id number] CC:
[2017-06-19] VITALS: BP 152/65
[2017-06-19 04:47] VITALS: BP 157/84
[2017-06-19 07:39] LABS: BASOPHILS % (AUTO) 0.3 % (0.0-2.0); EOSINOPHILS % (AUTO) 1.7 % (0.0-3.0); HEMATOCRIT 30.1 % (37.0-47.0); LYMPHOCYTES % (AUTO) 23.5 % (20.0-45.0); MEAN CORPUSCULAR VOLUME 88 FL (80-99); MONOCYTES % (AUTO) 7.8 % (1.0-10.0); NEUTROPHILS % (AUTO) 66.8 % (45.0-75.0); PLATELET COUNT 240 K/UL (150-450); RED BLOOD COUNT 3.42 M/UL (4.20-5.40); RED CELL DISTRIBUTION WIDTH 11.9 % (11.6-14.8); WHITE BLOOD COUNT 8.1 K/UL (4.8-10.8)
[2017-06-19 07:57] LABS: ANION GAP 7 mmol/L (5-15); BLOOD UREA NITROGEN 12 mg/dL (7-18); CALCIUM 8.2 MG/DL (8.5-10.1); CARBON DIOXIDE 31 MMOL/L (21-32); CHLORIDE 104 MMOL/L (98-107); CREATININE 0.9 MG/DL (0.55-1.30); POTASSIUM 3.7 MMOL/L (3.5-5.1); SODIUM 142 MMOL/L (136-145)
[2017-06-19 08:00] VITALS: BP 155/77
--- NOTE | 2017-06-19 08:21 | Orthopedic Progress Note ---
Orthopedic - Progress Note Subjective Symptoms: improved Objective Vital Signs Laboratory Tests Test 06/19/17 04:50 White Blood Count 8.1 K/UL (4.8-10.8) Red Blood Count 3.42 M/UL (4.20-5.40) L Hemoglobin 10.0 G/DL (12.0-16.0) L Hematocrit 30.1 % (37.0-47.0) L Mean Corpuscular Volume 88 FL (80-99) Mean Corpuscular Hemoglobin 29.2 PG (27.0-31.0) Mean Corpuscular Hemoglobin Concent 33.2 G/DL (32.0-36.0) Red Cell Distribution Width 11.9 % (11.6-14.8) Platelet Count 240 K/UL (150-450) Mean Platelet Volume 7.4 FL (6.5-10.1) Neutrophils (%) (Auto) 66.8 % (45.0-75.0) Lymphocytes (%) (Auto) 23.5 % (20.0-45.0) Monocytes (%) (Auto) 7.8 % (1.0-10.0) Eosinophils (%) (Auto) 1.7 % (0.0-3.0) Basophils (%) (Auto) 0.3 % (0.0-2.0) Sodium Level 142 MMOL/L (136-145) Potassium Level 3.7 MMOL/L (3.5-5.1) Chloride Level 104 MMOL/L (98-107) Carbon Dioxide Level 31 MMOL/L (21-32) Anion Gap 7 mmol/L (5-15) Blood Urea Nitrogen 12 mg/dL (7-18) Creatinine 0.9 MG/DL (0.55-1.30) Estimat Glomerular Filtration Rate mL/min (>60) Glucose Level 97 MG/DL (74-106) Calcium Level 8.2 MG/DL (8.5-10.1) L Last 24 Hour Vital Signs Date Time Temp Pulse Resp B/P (MAP) Pulse Ox O2 Delivery O2 Flow Rate FiO2 06/19/17 04:47 98.4 73 20 157/84 96 Room Air 98.4 06/19/17 00:00 98.1 70 15 152/65 97 98.1 06/19/17 00:00 97 Room Air 06/18/17 20:00 97.8 76 18 146/51 93 97.8 06/18/17 20:00 93 Room Air 06/18/17 18:56 97.7 62 20 150/64 99 97.7 06/18/17 17:28 70 14 98 06/18/17 17:27 208.4 62 14 100 06/18/17 16:46 98.5 06/18/17 16:30 98.5 64 21 157/74 99 Nasal Cannula 3.0 98.5 06/18/17 16:16 98.3 06/18/17 16:15 63 17 157/75 99 Nasal Cannula 3.0 06/18/17 16:00 61 15 153/61 98 Nasal Cannula 3.0 06/18/17 15:52 62 13 162/73 98 Nasal Cannula 3.0 06/18/17 15:47 70 20 144/61 97 Simple Mask 6.0 06/18/17 15:42 98.3 62 25 145/70 97 Simple Mask 6.0 98.3 06/18/17 12:00 99.5 67 19 152/75 94 99.5 06/18/17 09:44 97.9 06/18/17 09:14 97.9 06/18/17 09:13 68 145/67 06/18/17 09:13 68 145/67 I&O Intake and Output 06/18/17 06/19/17 19:00 07:00 Intake Total 1000 ml 750 ml Output Total 5 ml Balance 995 ml 750 ml IV Total 1000 ml 750 ml Estimated Blood Loss 5 ml # Voids 1 3 Wound: other - splint in place. leg elevated Drains: none Additional Comments xray reviewed. excellent Assessment Post-op Diagnosis POD 1 Procedure Performed Rt ankle ORIF Plan Plan: PT - NWB Rt LE, discharge plan - f/u Dr. Yañez as outpt in 1 week for cast change MARICHUY KENT Jun 19, 2017 08:21
--- NOTE | 2017-06-19 08:34 | Diagnostic Imaging Report ---
Indication: Right ankle pain, postoperative Technique: 3 views of the right ankle Comparison: 06/17/2017 Findings: Interim surgical repair of previously demonstrated distal fibular fracture with a lateral sideplate and screws, good anatomic alignment. Interim reduction of the previously demonstrated tibiotalar subluxation, now satisfactory anatomical alignment Impression: Intraoperative imaging, as described
[2017-06-19] MEDS: Docusate 100mg cap ORAL SCH (08:37)
[2017-06-19] MEDS: Docusate Sod/Senna tab ORAL SCH (08:37)
[2017-06-19] MEDS: metFORMIN 500mg tab ORAL SCH (08:37)
[2017-06-19] MEDS: Heparin 5000 units/ml inj SUBQ SCH (08:40)
--- NOTE | 2017-06-19 08:46 | Pulmonology Progress Note ---
Assessment/Plan Assessment/Plan ASSESSMENT Displaced trimalleolar fracture R ankle s/p ORIF R ankle fx HTN DM HLD anemia GERD PLAN OF CARE MS floor s/p surgery surgery follows Pain management OOB to chair NWB RLE PT/OT Bowel regimen DVT prophylaxis IS when in bed BS management with SSI BP management with BB and CCB Supportive care GI prophylaxis Monitor HH for any trend down dc plan to rehab facility patient wants to go home PT stated that patient was unsafe for dc home : patient NWB on RLE , has stairs at home and need teaching how to climb stairs with walker being NWB RLE case discussed and evaluated by supervising physician later during the day around 1130 am received a call from the nurse that patient eloped, son in law picked her up charge nurse spoke with daughter Lincoln about need to fup with ortho in 1 week , NWB status RLE and ER precautions case discussed and evaluated by supervising physician Subjective Allergies: Coded Allergies: ASPIRIN (Verified Allergy, Unknown, Shortness of Breath, 09/15/14) Subjective patient seen at the bedside PT eval done PT recommended SNF , patient has stairs at home and not safe for dc home being NWB RLE without training with walker Objective Last 24 Hour Vital Signs Date Time Temp Pulse Resp B/P (MAP) Pulse Ox O2 Delivery O2 Flow Rate FiO2 06/19/17 08:38 89 155/76 06/19/17 08:38 89 155/76 06/19/17 04:47 98.4 73 20 157/84 96 Room Air 98.4 06/19/17 00:00 98.1 70 15 152/65 97 98.1 06/19/17 00:00 97 Room Air 06/18/17 20:00 97.8 76 18 146/51 93 97.8 06/18/17 20:00 93 Room Air 06/18/17 18:56 97.7 62 20 150/64 99 97.7 06/18/17 17:28 70 14 98 06/18/17 17:27 208.4 62 14 100 06/18/17 16:46 98.5 06/18/17 16:30 98.5 64 21 157/74 99 Nasal Cannula 3.0 98.5 06/18/17 16:16 98.3 06/18/17 16:15 63 17 157/75 99 Nasal Cannula 3.0 06/18/17 16:00 61 15 153/61 98 Nasal Cannula 3.0 06/18/17 15:52 62 13 162/73 98 Nasal Cannula 3.0 06/18/17 15:47 70 20 144/61 97 Simple Mask 6.0 06/18/17 15:42 98.3 62 25 145/70 97 Simple Mask 6.0 98.3 06/18/17 12:00 99.5 67 19 152/75 94 99.5 06/18/17 09:44 97.9 06/18/17 09:14 97.9 06/18/17 09:13 68 145/67 06/18/17 09:13 68 145/67 Intake and Output 06/18/17 06/19/17 19:00 07:00 Intake Total 1000 ml 750 ml Output Total 5 ml Balance 995 ml 750 ml IV Total 1000 ml 750 ml Estimated Blood Loss 5 ml # Voids 1 3 General Appearance: no acute distress HEENT: normocephalic, atraumatic, anicteric, mucous membranes moist Respiratory/Chest: lungs clear, no respiratory distress, no accessory muscle use Cardiovascular: normal peripheral pulses, normal rate, no JVD Abdomen: normal bowel sounds, soft, non tender, non distended Extremities: other - RLE with posterior splint and dressing with RICARDO wrap over , C/D/I; n/v intact Laboratory Tests 06/19/17 04:50: White Blood Count 8.1, Red Blood Count 3.42L, Hemoglobin 10.0L, Hematocrit 30.1L , Mean Corpuscular Volume 88, Mean Corpuscular Hemoglobin 29.2, Mean Corpuscular Hemoglobin Concent 33.2, Red Cell Distribution Width 11.9, Platelet Count 240, Mean Platelet Volume 7.4, Neutrophils (%) (Auto) 66.8, Lymphocytes (% ) (Auto) 23.5, Monocytes (%) (Auto) 7.8, Eosinophils (%) (Auto) 1.7, Basophils ( %) (Auto) 0.3, Sodium Level 142, Potassium Level 3.7, Chloride Level 104, Carbon Dioxide Level 31, Anion Gap 7, Blood Urea Nitrogen 12, Creatinine 0.9, Estimat Glomerular Filtration Rate , Glucose Level 97, Calcium Level 8.2L Current Medications Medications (Trade) Dose Ordered Sig/Allison Route PRN Reason Start Time Stop Time Status Last Admin Dose Admin Acetaminophen (Tylenol) 650 mg Q4H PRN ORAL Mild Pain (Pain Scale 1-3) 06/17/17 18:15 07/17/17 18:14 Acetaminophen (Tylenol) 650 mg Q4H PRN ORAL fever 06/17/17 18:15 07/17/17 18:14 Acetaminophen (Tylenol) 650 mg Q4H PRN RECTAL Mild Pain (Pain Scale 1-3) 06/17/17 18:15 07/17/17 18:14 Acetaminophen (Tylenol) 650 mg Q4H PRN RECTAL fever 06/17/17 18:15 07/17/17 18:14 Acetaminophen/ Hydrocodone Bitart ([place] 5/325) 1 tab Q4H PRN ORAL For Moderate Pain 06/18/17 14:30 06/25/17 14:29 Al Hydroxide/Mg Hydroxide (Mylanta II) 30 ml Q6H PRN ORAL dyspepsia 06/17/17 18:15 07/17/17 18:14 Amlodipine Besylate (Norvasc) 10 mg DAILY ORAL 06/18/17 09:00 07/18/17 08:59 06/19/17 08:38 Atenolol (Tenormin) 100 mg DAILY ORAL 06/18/17 09:00 07/18/17 08:59 06/19/17 08:38 Bisacodyl (Dulcolax) 10 mg HSPRN PRN RECTAL Constipation 06/17/17 18:15 07/17/17 18:14 Dextrose (Dextrose 50%) STAT PRN IV Hypoglycemia 06/17/17 18:15 07/17/17 18:14 Diphenhydramine HCl (Benadryl) 25 mg Q6H PRN ORAL Itching/Pruritis 06/17/17 18:15 07/17/17 18:14 Docusate Sodium (Colace) 100 mg EVERY 12 HOURS ORAL 06/17/17 21:00 07/17/17 20:59 06/19/17 08:37 Heparin Sodium (Porcine) (Heparin 5000 units/ml) 5,000 units EVERY 12 HOURS SUBQ 06/18/17 21:00 07/18/17 20:59 06/19/17 08:40 Hydromorphone HCl (Dilaudid) 1 mg Q3H PRN SUBQ Mod Pain (Scale 4-6) if unable 06/18/17 14:30 06/25/17 14:29 Magnesium Hydroxide (Mom) 30 ml HSPRN PRN ORAL Constipation 06/17/17 18:15 07/17/17 18:14 Metformin HCl (Glucophage) 500 mg BID ORAL 06/18/17 18:00 07/18/17 17:59 06/19/17 08:37 Morphine Sulfate (Morphine Sulfate) 4 mg Q3H PRN IVP Severe Pain (Pain Scale 7-10) 06/17/17 18:15 06/24/17 18:14 Ondansetron HCl (Zofran) 4 mg Q6H PRN IVP Nausea & Vomiting 06/17/17 18:15 07/17/17 18:14 Senna/Docusate Sodium (Ngoc-Colace) 1 tab TWICE A DAY ORAL 06/18/17 18:00 07/18/17 17:59 06/19/17 08:37 Sodium Chloride 1,000 ml @ 75 mls/hr [id number] IV 06/18/17 00:00 07/18/17 00:00 06/18/17 09:13 Temazepam (Restoril) 7.5 mg HSPRN PRN ORAL Insomnia 06/18/17 14:30 06/25/17 14:29 [facility]east [facility] hospitalWendi Plunkett NP Jun 19, 2017 08:46
[2017-06-19] MEDS ORDERED: Enoxaparin 30mg Inj SUBQ SCH (09:00)
[2017-06-19 11:02] VITALS: BP 148/76
--- NOTE | 2017-06-19 11:02 | 48 Hour Post Anesthesia Eval ---
Post Anesthesia Evaluation Procedure: right ankle ORIF Date of Evaluation: Jun 19, 2017 Time of Evaluation: 11:00 Blood Pressure Systolic: 148 0: 76 Pulse Rate: 72 Respiratory Rate: 22 Temperature (Fahrenheit): 97.6 O2 Sat by Pulse Oximetry: 98 Airway: patent Nausea: No Vomiting: No Pain Intensity: 3 Hydration Status: adequate Cardiopulmonary Status: stable Mental Status/LOC: patient returned to baseline Follow-up Care/Observations: n/a Post-Anesthesia Complications: none Follow-up care needed: N/A SANA CHAMBERS M.D. Jun 19, 2017 11:02
[2017-06-19] MEDS ORDERED: NS 275ml ONE (11:29)
[2017-06-19] MEDS ORDERED: Tubing IV Secondary IV ONE (11:29)
--- NOTE | 2017-06-22 13:04 | Discharge Summary ---
Discharge Summary Hospital Course Date of Admission Jun 17, 2017 at 20:00 Date of Discharge Jun 19, 2017 at 11:30 Admitting Diagnosis TRIMALLEOLAR FRACTURE HPI Susan Michi Raymundo is a 76 year old female who was admitted on Jun 17, 2017 at 20: 00 for Trimalleolar Fracture Hospital Course DC SUMMARY #[id number] Discharge Discharge Disposition Patient LUIS M Pinzon ([facility]),Wendi CLEMENS Jun 22, 2017 13:04
--- NOTE | 2017-06-23 03:16 | Discharge Summary 2 SIG ---
DATE OF ADMISSION: 06/17/2017 DATE OF DISCHARGE: 06/19/2017 REASON FOR ADMISSION: The patient is a 76-year-old female, with history of diabetes, hypertension, hyperlipidemia, and gastroesophageal reflux disease, presented with right ankle pain status post fall. The patient reported that she slipped on the wet floor at the and fell twisting her right ankle. She was unable to ambulate since that. She reported right ankle swelling and severe pain. She denied head trauma, loss of consciousness, or blackout. No fever. No chills. No nausea. No vomiting. No diarrhea. No constipation or chest pain. No shortness of breath. No abdominal pain. On the baseline, the patient was ambulatory, functional, and able to walk and climb at least one flight of stairs without any difficulties. Workup in the emergency room revealed displaced trimalleolar fracture of right ankle, which was evident on the ankle x-ray. Surgery consult was requested and the patient admitted for further management with diagnosis of displaced trimalleolar fracture of right ankle, hypertension, hyperlipidemia, gastroesophageal reflux disease, and diabetes. HOSPITAL COURSE: The patient was admitted. Ortho consult was requested. The patient was nonweightbearing on the right lower extremity. Pain management provided. Preop EKG and chest x-ray were done. Home medications were resumed, but RICARDO inhibitor was hold. Blood sugar was managed with sliding scale of insulin. Supportive care provided. Bowel regimen instituted. Initially, DVT prophylaxis was provided with SCD due to the surgery. The patient subsequently undergone open reduction and internal fixation of the right ankle fracture, which was done on 06/18/2017. The patient had right ankle open reduction and internal fixation of lateral malleolus and closed reduction of posterior malleolus with dorsiflexion of the ankle. Sterile dressing was applied and posterior splint and sugar-tong splint were applied. Course of recovery was uneventful. Pain management provided. The patient was able to get out of bed to the chair. Continue nonweightbearing status of the right lower extremity. The patient was working with physical and occupational therapy. Bowel regimen instituted. DVT prophylaxis provided. The patient was taught and encouraged to use incentive spirometer while in the bed. Blood pressure was managed with beta-kalina and calcium channel kalina. GI prophylaxis provided. Hemoglobin and hematocrit were closely monitored. The plan was to discharge the patient to rehabilitation facility for short-term rehabilitation and PT and OT. Physical therapy stated that the patient was unsafe for discharge home. The patient was nonweightbearing on the right lower extremity. The patient has stairs at home and need to be taught how to climb stairs with walker while being nonweightbearing on the right lower extremity. The patient was informed about that. Later during the day around 11:30, nurse went to the room and saw that the patient eloped. Apparently, son-in-law came to pick her up and no one was in the room. Surgeon spoke with the daughter, about need to follow up with orthopedic surgeon in one week, nonweightbearing status of right lower extremity, and ER precautions. FINAL DIAGNOSES: 1. Displaced trimalleolar fracture of right ankle. 2. Status post open reduction and internal fixation of right ankle fracture. 3. Hypertension. 4. Diabetes. 5. Hyperlipidemia. 6. Anemia. 7. Gastroesophageal reflux disease. Of note, the patient is afebrile. No leukocytosis. Hemoglobin and hematocrit remained on the baseline. No trend down. Hemoglobin A1c 6.3 at goal. Blood pressure and blood sugar were stable. Agustina Manriqeuz M.D. I have been assigned to dictate discharge summary on this account and I was not involved in the patient's management. Wendi kenwei) NFarzanaPFarzana DR: ROSMERY JOB#: [id number] CC:
== END 2017-06-19 11:30 | disposition left against medical advice (07) | DRG 494 ==
LOC: EDBD 14:58 → EMR 15:50 → 4W 20:00 → EDBEDREQ 21:36
PROC: 0QSG04Z Reposition Right Tibia with Internal Fixation Device, Open Approach (ICD-10-PCS; principal; 2017-06-18 14:00)
PROC: 0QSJ04Z Reposition Right Fibula with Internal Fixation Device, Open Approach (ICD-10-PCS; principal; 2017-06-18 14:00)
DX: S82.851A Displaced trimalleolar fracture of right lower leg, initial encounter for closed fracture (principal); E11.9 Type 2 diabetes mellitus without complications; D64.9 Anemia, unspecified; I10 Essential (primary) hypertension; E78.5 Hyperlipidemia, unspecified; W01.0XXA Fall on same level from slipping, tripping and stumbling without subsequent striking against object, initial encounter; Y92.512 Supermarket, store or market as the place of occurrence of the external cause; K21.9 Gastro-esophageal reflux disease without esophagitis; Z88.6 Allergy status to analgesic agent
CPT/HCPCS: 29515; 36415; 71045; 76000; 80048; 80053; 82962; 83036; 85025; 85610; 86850; 86900; 86901; 93005; 94003; 94150; 99285; C9399; J1815; J2250; J2405

== ENCOUNTER 2017-06-23 21:11 | Emergency (ER) | payer MEDICARE, MEDICAID ==
[~2017-06-23] VITALS: Ht 162.6 cm; Wt 81.6 kg
[~2017-06-23 21:11] MED LIST changes: +AMLODIPINE BESY10 MG ORAL; +APRESOLINE100 MG PO; +CLONIDINE 0.2M0.2 MG PO; +CLONIDINE HCL0.1 MG PO; +DIAZEPAM10 MG ORAL; +HYDRALAZIN20 MG/1 ML IJ; +IRON159 MG PO; +IRON18 M1 PO; +LISINOPRIL40 MG ORAL; +NORCO 5-325 TA1 EACH ORAL; +OMEPRAZOLE20 M2 PO; +OMEPRAZOLE20 M3 ORAL; +OXYCODONE HCL15 M1 ORAL; +OXYCODONE HCL20 M1 ORAL; +OXYCODONE HCL30 MG PO; +PHENERGAN6.25 MG/5 PO; +PROAIR HFA8.5 GM INH; +SIMVASTATIN40 MG ORAL; +TENORMIN100 MG ORAL; +TYLENOL EXTRA500 MG ORAL
[2017-06-23 22:00] VITALS: BP 125/57
--- NOTE | 2017-06-23 22:26 | Emergency Room Report ---
History of Present Illness General Chief Complaint: Constipation Source: Patient, Family Member Present Illness HPI This is a pleasant 76-year-old female who presents with chief complaint of reevaluation on her ankle fracture. She had a trimalleolar fracture of the require ORIF. She left the hospital early because of the of her son in [place]. She has some personal issues she had to deal with. Initially she said she was constipated. This occur yesterday. She took some raisin in water and got better. He had good bowel movement yesterday. She is no longer constipated. She actually bear some libido weight on her ankle yesterday and was concerned that there may be some problem. She has no pain. No swelling. Denies any other complaint. She has an appointment with orthopedic doctor on Thursday. Allergies: Coded Allergies: ASPIRIN (Verified Allergy, Unknown, Shortness of Breath, 09/15/14) Patient History Past Medical History: see triage record, old chart reviewed Past Surgical History: other Pertinent Family History: none Social History: Denies: smoking Now: No Immunizations: other Reviewed Nursing Documentation: PMH: Agreed; PSxH: Agreed Nursing Documentation-PMH Hx Cardiac Problems: Yes - RT FOOT SURGERY Hx Hypertension: Yes Hx Asthma: Yes Hx Diabetes: Yes Hx Cerebrovascular Accident: No Review of Systems Eye: Denies: eye pain, blurred vision ENT: Denies: ear pain, nose congestion, throat swelling Respiratory: Denies: cough, shortness of breath Cardiovascular: Denies: chest pain, palpitations Gastrointestinal: Denies: abdominal pain, diarrhea, nausea, vomiting Musculoskeletal: Denies: back pain, joint pain Skin: Denies: rash Neurological: Denies: headache, numbness Endocrine: Denies: increased thirst, increased urine Hematologic/Lymphatic: Denies: easy bruising All Other Systems: negative except mentioned in HPI Physical Exam Vital Signs Date Time Temp Pulse Resp B/P (MAP) Pulse Ox O2 Delivery O2 Flow Rate FiO2 06/23/17 21:34 98.3 59 16 125/57 92 Room Air 98.2 vitals normal Sp02 EP Interpretation: reviewed, normal General Appearance: well appearing, no apparent distress, alert Head: normocephalic, atraumatic Eyes: bilateral eye PERRL, bilateral eye EOMI ENT: hearing grossly normal, normal pharynx Neck: full range of motion, supple, no meningismus Respiratory: chest non-tender, lungs clear, normal breath sounds Cardiovascular #1: regular rate, rhythm, no murmur Gastrointestinal: normal bowel sounds, non tender, no mass, no organomegaly, no bruit, non-distended Musculoskeletal: back normal, normal range of motion, other - Right ankle in a cast. No edema to the toes. No pain with movement of the toes. Sensation normal. Neurologic: alert, oriented x3 Psychiatric: mood/affect normal Skin: warm/dry Medical Decision Making Diagnostic Impression: Primary Impression: Displaced trimalleolar fracture of right ankle Qualified Codes: S82.851D - Displaced trimalleolar fracture of right lower leg , subsequent encounter for closed fracture with routine healing ER Course Patient with postop wound check. No evidence of any issue going on. Alignment looks fine. We'll discharge home. Told patient to remain nonweightbearing. We 'll discharge home. Other X-Ray Diagnostic Results Other X-Ray Diagnostic Results : X-Ray ordered: right ankle x-rays # of Views/Limited Vs Complete: 3 View Indication: Pain EP Interpretation: Yes Interpretation: no dislocation, no soft tissue swelling, other - post op changes. Impression: Other - post op changes Electronically Signed by: Chidi Corcoran MD Last Vital Signs Date Time Temp Pulse Resp B/P (MAP) Pulse Ox O2 Delivery O2 Flow Rate FiO2 06/23/17 21:34 98.3 59 16 125/57 92 Room Air 98.2 Status: improved Disposition: HOME, SELF-CARE Condition: Stable Referrals: NON PHYSICIAN (PCP) Additional Instructions: Remain nonweightbearing. Follow-up with orthopedic doctor on Thursday as scheduled. Return of worse. CHIDI CORCORAN M.D. Jun 23, 2017 22:26
[2017-06-23 22:42] VITALS: BP 125/57
--- NOTE | 2017-06-24 10:25 | Diagnostic Imaging Report ---
Indication: Pain Technique: 3 views of the right ankle Comparison: 06/18/2017 Findings: Overlying splint obscures bony detail. Again demonstrated are lateral sideplate and screws reducing distal tibial fracture. Again demonstrated is a posterior malleolar fracture. Alignment is unchanged. No new fractures. Impression: Postsurgical and posttraumatic changes, as described, unchanged over 5 days No evidence of acute bony trauma
== END 2017-06-23 22:42 | disposition home or self-care (01) ==
LOC: EMR 21:50
DX: S82.851D Displaced trimalleolar fracture of right lower leg, subsequent encounter for closed fracture with routine healing (principal); X58.XXXD Exposure to other specified factors, subsequent encounter; I10 Essential (primary) hypertension; J45.909 Unspecified asthma, uncomplicated; E11.9 Type 2 diabetes mellitus without complications
CPT/HCPCS: 99283

== ENCOUNTER 2017-10-03 19:18 | Emergency (ER) | payer MEDICARE, MEDICAID ==
[~2017-10-03] VITALS: Ht 162.6 cm; Wt 75.3 kg
--- NOTE | 2017-10-03 20:16 | Diagnostic Imaging Report ---
EXAM: XR Right Ankle Complete, 3 or More Views CLINICAL HISTORY: PAIN TECHNIQUE: Frontal, lateral and oblique views of the right ankle. COMPARISON: No relevant prior studies available. FINDINGS: An area of periosteal thickening at the lateral cortex of the distal tibia was not present on the prior radiograph. There is no acute fracture or dislocation. Hardware in the distal fibula is intact and in place. IMPRESSION: Nonspecific periosteal elevation at the distal tibia. Consider correlation with cross-sectional imaging.
--- NOTE | 2017-10-03 20:37 | Emergency Room Report ---
History of Present Illness General Chief Complaint: Lower Extremity Injury Source: Patient Present Illness HPI Pt. presents to the ED c/o 09/06 in severity right ankle pain, swelling and tenderness x 1 month. pt. reports intermittent swelling s/p surgery with hardware from This past may. pt. had ankle fx. pt. denies calf pain or swelling. pt. reports she was also scratched by a dog right over her surgical scar. pt. has DM and is worried about possible infection. denies erythema, fevers or chills. denies new trauma or fall. pt. reports that she has been doing a lot of walking around /work lately. Denies paresthesias, claudication. reports recent travel to [place] but states sx's onset prior to travel. not on estrogen medication. Allergies: Coded Allergies: ASPIRIN (Verified Allergy, Unknown, Shortness of Breath, 09/15/14) Patient History Past Medical History: see triage record Past Surgical History: other - internal fixiation of right ankle following trimalleolar fx in may. Last Menstrual Period: NA Now: No Reviewed Nursing Documentation: PMH: Agreed; PSxH: Agreed Nursing Documentation-PMH Hx Cardiac Problems: Yes - RT FOOT SURGERY Hx Hypertension: Yes Hx Asthma: Yes Hx Diabetes: Yes Hx Cerebrovascular Accident: No Review of Systems All Other Systems: negative except mentioned in HPI Physical Exam Vital Signs Date Time Temp Pulse Resp B/P (MAP) Pulse Ox O2 Delivery O2 Flow Rate FiO2 10/03/17 19:23 97.9 66 18 160/64 98 Room Air 97.9 Sp02 EP Interpretation: reviewed, normal General Appearance: no apparent distress, alert, GCS 15, non-toxic Head: normocephalic, atraumatic ENT: hearing grossly normal, normal voice Neck: full range of motion Respiratory: chest non-tender, lungs clear, normal breath sounds, speaking full sentences Cardiovascular #1: regular rate, rhythm, no edema Gastrointestinal: normal bowel sounds, non tender, soft Rectal: deferred Genitourinary: normal inspection Musculoskeletal: back normal, gait/station normal, normal range of motion, non- tender, swelling - localized lateral right ankle, tender - TTP to the lateral right ankle just overlying the distal portion of the lateral surgical scar, some swelling noted, normal temperature to palpation. Neurologic: alert, oriented x3, responsive, motor strength/tone normal, sensory intact, normal gait, speech normal, grossly normal Psychiatric: judgement/insight normal Skin: normal color, no rash, warm/dry, well hydrated, other - surgical scars on the right ankle, no erythema, no d/c, no induration or fluctuant areas. surgical site is healed only scar tissue palpated. no obvious deformity, Medical Decision Making HANSEL Attestation Dr. Carranza is my supervising Physician whom patient management has been discussed with. Diagnostic Impression: Primary Impression: Ankle pain, right Qualified Codes: M25.571 - Pain in right ankle and joints of right foot Additional Impression: History of fracture of right ankle ER Course Pt. presents to the ED c/o 09/06 in severity right ankle pain, swelling and tenderness x 1 month. pt. reports intermittent swelling s/p surgery with hardware from This past may. pt. had ankle fx. pt. denies calf pain or swelling. pt. reports she was also scratched by a dog right over her surgical scar. pt. has DM and is worried about possible infection. denies erythema, fevers or chills. denies new trauma or fall. pt. reports that she has been doing a lot of walking around /work lately. Denies paresthesias, claudication. reports recent travel to [place] but states sx's onset prior to travel. not on estrogen medication. Ddx considered but are not limited to Fracture, dislocation, contusion, Sprain/ Strain/Spasm, Cellulitis, DVT, displaced hardware just to name a few. Vital signs: are WNL, pt. is afebrile H&PE are most consistent with musculoskeletal injury will perform imaging to r/ o fractures/dislocations. infection not suspected based on PE, DVT not suspected due to no calf sx's , and ttp very localized over surgical scar. ORDERS: - X-ray Right ankle 3 views - negative for fx, Dislocation, or significant soft tissue injury, per preliminary read in ED, and signed by HANSEL Vital , my supervising physician has reviewed, and agrees with my interpretation. ED INTERVENTIONS: - Tylenol PO DISCHARGE: At this time pt. is stable for d/c to home. Will provide printed patient care instructions, and any necessary prescriptions. Care plan and follow up instructions have been discussed with the patient prior to discharge. Other X-Ray Diagnostic Results Other X-Ray Diagnostic Results : X-Ray ordered: right ankle # of Views/Limited Vs Complete: 3 View Indication: Pain EP Interpretation: Yes PA Xray: Interpretation reviewed, by supervising MD, and agrees with findings. Interpretation: no dislocation, no soft tissue swelling, no fractures, other - hardware noted not displaced. Impression: No acute disease Electronically Signed by: Laura HAMM Scribe Text also awaiting radiologist impression. Last Vital Signs Date Time Temp Pulse Resp B/P (MAP) Pulse Ox O2 Delivery O2 Flow Rate FiO2 10/03/17 19:23 97.9 66 18 160/64 98 Room Air 97.9 Disposition: HOME, SELF-CARE Condition: Stable Scripts Acetaminophen* (TYLENOL EXTRA STRENGTH*) 500 Mg Tablet 500 MG ORAL Q6H, #20 TAB 0 Refills Prov: Laura Vital 10/03/17 Bacitracin/Polymyxin B Sulfate (BACITRACIN-POLYMYXIN OINTMENT) 28.35 Gm Oint...g. 1 APPLIC TP BID, #28.3 GM Prov: Laura Vital 10/03/17 Hydrocortisone (Hydrocortisone Cream 2.5%) Y Cream.appl 1 APPLIC TP BID, #28.3 GM Prov: Laura Vital 10/03/17 Referrals: [facility] Patient Instructions: Ankle Pain Additional Instructions: Take medications as directed. Follow up with an CONVEYOR TECHNICIAN in 3-5 days, even if your symptoms have resolved. If symptoms persist MRI may be required at the discretion of your PCP or Ortho Specialist. --Please review list of primary care clinics, if you do not already have a primary care provider who can give you an Orthopedic Referral. Return sooner to ED if new symptoms occur, or current symptoms become worse. Do not drink alcohol, drive, or operate heavy machinery while taking Blunt as this may cause drowsiness. - Please note that this Emergency Department Report was dictated using [employer] instrument [employer] technology software, occasionally this can lead to erroneous entry secondary to interpretation by the dictation equipment. Laura Vital Oct 03, 2017 20:37
[2017-10-03] MEDS ORDERED: TYLENOL EXTRA500 MG ORAL (20:38)
[2017-10-03] MEDS ORDERED: HYDROCORTISONE30 G2 TP (20:38)
[2017-10-03] MEDS ORDERED: BACITRACIN-P28.35 GM TP (20:38)
[2017-10-03 20:55] VITALS: BP 160/64
== END 2017-10-03 20:55 | disposition home or self-care (01) ==
LOC: EMR 19:35
DX: M25.571 Pain in right ankle and joints of right foot (principal); I10 Essential (primary) hypertension; E11.9 Type 2 diabetes mellitus without complications
CPT/HCPCS: 99284